=== PATIENT | male | born 1975 | race Caucasian/White ===

== ENCOUNTER 2018-09-05 12:32 | Emergency (ER) | payer OTHER ==
[2018-09-05 12:42] VITALS: BP 143/96
--- NOTE | 2018-09-05 12:51 | EDPHY ---
H & P Stated Complaint: Lower back pain Time Seen by Provider: 09/05/18 12:50 - Personal History Current Tetanus/Diphtheria Vaccine: Yes - Medical/Surgical History Hx Asthma: No Hx Chronic Respiratory Disease: No Hx Diabetes: No Hx Cardiac Disease: No Hx Renal Disease: No Hx Cirrhosis: No Hx Alcoholism: No Other PMH: herniated disc in lower back - Social History Smoking Status: Never smoked Constitutional: Initial Vital Signs Temperature (C) 36.8 C 09/05/18 12:39 Heart Rate 89 09/05/18 12:39 Respiratory Rate 18 09/05/18 12:39 Blood Pressure 143/96 H 09/05/18 12:39 O2 Sat (%) 95 09/05/18 12:39 Allergies/Adverse Reactions: No Known Allergies Allergy (Unverified 09/05/18 12:42) Home Medications: Medication Instructions Recorded Cyclobenzaprine 10Mg Prepack#3 1 btl TAKEHOME EDNOW #7 btl 09/05/18 [Flexeril 10 mg Prepack#3] Ibuprofen [Motrin] 800 mg PO Q8 #20 tab 09/05/18 methylPREDNISolone [Medrol Dose 1 each PO AD #1 ea 09/05/18 Jude] oxyCODONE IR [Oxycodone Ir (*)] 5 - 10 mg PO Q6 PRN #20 tab 09/05/18 Medical Decision Making ED Course/Re-evaluation: CHIEF COMPLAINT: Lower back pain HISTORY OF PRESENT ILLNESS: The patient is a 43 y/o male with a history of a herniated lumbar disk complaining of acute on chronic lower back pain onset 2 weeks ago. Around 12 years ago he injured his back in [place] and has since been seen [facility]. He has not had any surgeries for the chronic pain. He states that it is difficult to stand straight after sitting. He is also having bilateral hip and muscle cramping in his legs. Around 2-3 days ago the pain significantly exacerbated and he started taking more Aleve without relief of his symptoms. He denies recent trauma. No headache, chest pain, shortness of breath, abdominal pain, urinary or bowel complaints, numbness. REVIEW OF SYSTEMS: A comprehensive 10 system review of systems is otherwise negative aside from the elements mentioned in the history of present illness and medical decision making. PHYSICAL EXAM: HR, BP, O2 Sat, RR. Temp noted General Appearance: Alert, well hydrated, appropriate, and non-toxic appearing. Head: Atraumatic without scalp tenderness or obvious injury Eyes: Pupils equal, round, reactive to light and accommodation, EOMI, no trauma , no injection. Ears: Clear bilaterally, no perforation, normal landmarks Nose: Atraumatic, no rhinorrhea, clear. Throat: There is no erythema or exudates, no lesions, normal tonsils, mucus membranes moist. Neck: Supple, 2+ carotid upstroke, nontender, no lymphadenopathy. Respiratory: No retractions, no distress, no wheezes, and no accessory muscle use. Lungs are clear to auscultation bilaterally. Cardiovascular: Regular rate and rhythm, no murmurs, rubs, or gallops. Bilateral carotid, radial, dorsalis pedis, and posterior tibial pulses intact. Good capillary refill all extremities. Gastrointestinal: Abdomen is soft, nontender, non-distended, no masses, no rebound, no guarding, no peritoneal signs. Musculoskeletal: Small blister on right lumbar back where he used a massager. Normal active ROM of all extremities, atraumatic. Neurological: Alert, appropriate, and interactive. The patient has normal DTRs and non-focal cranial nerves, motor, sensory, and cerebellar exam. Skin: No rashes, good turgor, no nodules on palpation. Past medical history: Herniated lumbar disk Past surgical history: Denies Family history: Denies Social history: at bedside, employed, [place] DIAGNOSTICS/PROCEDURES/CRITICAL CARE TIME: Not indicated. DIFFERENTIAL DIAGNOSIS: The differential diagnosis for the patient's back pain included but was not limited to musculoskeletal pain, epidural abscess, herniated disk, spinal fracture, and intra-abdominal causes including urinary system. MEDICAL DECISION MAKING: The patient is a 43 y/o male with a history of a herniated lumbar disk presenting with acute on chronic lower back pain onset 2 weeks ago. The pain then significantly exacerbated around 2-3 days ago. On exam he has a small blister on his right lumbar back where he used a massager. Imaging studies are not indicated at this time as he does not meet emergent MRI criteria. I have prescribed him Flexeril, Motrin, OxyIR, and a Medrol dose pack for his symptoms. I have given him Prednisone prior to discharge as most pharmacies are not indicated. I have also advised him to follow up with a neurosurgeon in the next week. Return precautions provided; patient is comfortable with this plan. Departure - Departure Disposition: Home, Routine, Self-Care Clinical Impression: Low back pain Qualifiers: Chronicity: acute Back pain laterality: bilateral Sciatica presence: without sciatica Qualified Code(s): M54.5 - Low back pain Condition: Good Instructions: Chronic Back Pain (DC), Back Pain (ED) Additional Instructions: 1. Take Flexeril, Motrin, OxyIR, and the Medrol dose pack as prescribed. 2. Followup with a ep specialist within one week. 3. Return to the emergency department for severe pain, fever, numbness, difficulty walking, change in location or nature of pain or other concerns. Referrals: Tony Dong MD [Medical Doctor] - As per Instructions Elvin Mejia MD [Medical Doctor] - As per Instructions Prescriptions: Cyclobenzaprine 10Mg Prepack#3 [Flexeril 10 mg Prepack#3] 1 btl TAKEHOME EDNOW # 7 btl Ibuprofen [Motrin] 800 mg PO Q8 #20 tab methylPREDNISolone [Medrol Dose Jude] 1 each PO AD #1 ea oxyCODONE IR [Oxycodone Ir (*)] 5 - 10 mg PO Q6 PRN #20 tab PRN Reason: Pain, Severe Report Scribed for: Oral Mcgraw Report Scribed by: Malaika Schwartz Date of Report: 09/05/18 Time of Report: 12:52
[2018-09-05] MEDS ORDERED: OXYCODONE/APAP 5/325MG PREPACK#4 BTL TAKEHOME ONE (13:32)
[2018-09-05] MEDS ORDERED: predniSONE 20 MG TAB PO ONE (13:32)
[2018-09-05] MEDS ORDERED: CYCLOBENZAPRINE 10MG PREPACK#3 BTL TAKEHOME ONE ×2 (13:35→13:37)
== END 2018-09-05 13:30 | disposition home or self-care (01) ==
DX: M54.5 Low back pain (principal)
CPT/HCPCS: J7512